=== PATIENT | female | born 1965 | race Caucasian/White ===

== ENCOUNTER 2020-06-12 07:26 | Emergency (ER) | payer OTHER ==
[~2020-06-12] VITALS: Ht 162.6 cm; Wt 81.8 kg
[~2020-06-12 07:26] MED LIST: ACET1TAB23 PO; ASPI-556 PO; NAPR-1025 PO; SIMV-261 PO
[2020-06-12] MEDS ORDERED: HYDROCODONE/ACETAMINOPHEN 5-325 MG TABLET PO ONE (07:45)
[2020-06-12] MEDS ORDERED: LISI-660 PO (07:47)
[2020-06-12] MEDS ORDERED: DULO20CA27 PO (07:49)
[2020-06-12] MEDS ORDERED: METF-960 PO (07:49)
[2020-06-12 10:05] VITALS: BP 127/70
== END 2020-06-12 10:20 | disposition home or self-care (01) ==
LOC: EMS 07:29
DX: S83.92XA Sprain of unspecified site of left knee, initial encounter (principal); E11.9 Type 2 diabetes mellitus without complications; I10 Essential (primary) hypertension; Z88.8 Allergy status to other drugs, medicaments and biological substances; Z79.82 Long term (current) use of aspirin; W01.0XXA Fall on same level from slipping, tripping and stumbling without subsequent striking against object, initial encounter; Y93.01 Activity, walking, marching and hiking; Y92.89 Other specified places as the place of occurrence of the external cause; Y99.8 Other external cause status